=== PATIENT | female | born 1955 | race Caucasian/White ===

== ENCOUNTER 2018-06-24 13:40 | Emergency (ER) | payer BC ==
[2018-06-24] MEDS ORDERED: Diph,Pert(Acell),Tet Vac 0.5 ML SYR IM ONE (13:50)
[2018-06-24] MEDS ORDERED: LIDOCAINE (XYLOCAINE) 1% MPF 10MG/ML 5ML VIAL ONE ×2 (13:54→14:22)
--- NOTE | 2018-06-24 14:33 | Emergency Department Record ---
History of Present Illness - General Chief Complaint: Laceration(s) Stated Complaint: LT INDEX LAC Time Seen by Provider: 06/24/18 13:47 Source: Patient, RN notes reviewed Mode of Arrival: Ambulatory - History of Present Illness Initial Commments: crush injury to the left index finger and a laceration on the flexor side of the finger, neuro vasc intact and full rom. she dropped a box spring onto her finger Onset/Timin -: Minutes(s) Place: Outdoors Context: Accidental Associated Symptoms: None Treatments Prior to Arrival: Bandage - [place] Coma Scale Eye Response: (4) Open spontaneously Motor Response: (6) Obeys commands Verbal Response: (5) Oriented [place] Total: 15 - Related Data Hx Tetanus Toxoid Vaccination: Yes Year of Tetanus Vaccination: 2012 Patient Tetanus UTD (within 5 yrs): Yes Home Medications Medication Instructions Recorded Confirmed Last Taken Citalopram Hydrobromide 10 mg PO DAILY 06/24/18 06/24/18 Unknown [Citalopram HBr] Levothyroxine Sodium 137 mcg PO DAILY 06/24/18 06/24/18 Unknown Metoprolol Succinate 50 mg PO DAILY 06/24/18 06/24/18 Unknown Rosuvastatin Calcium [Crestor] 20 mg PO DAILY 06/24/18 06/24/18 Unknown Tiotropium [place] [Spiriva] 18 mcg IH DAILY 06/24/18 06/24/18 Unknown Previous Rx's Medication Instructions Recorded Hydrocodone/APAP 5/325Mg [[place] 1 each PO Q4H #10 tab 06/24/18 5Mg/325Mg] Allergies Allergy/AdvReac Type Severity Reaction Status Date / Time No Known Drug Allergies Allergy Verified 06/24/18 13:51 Travel Screening - Travel/Exposure Within Last 30 Days Have you traveled within the last 30 days?: No Review of Systems Reviewed: No additional complaints except as noted below Constitutional: Reports: As per HPI. Denies: Chills, Fever, Malaise, Night sweats, Weakness, Weight change Eyes: Reports: As per HPI. Denies: Eye discharge, Eye pain, Photophobia, Vision change ENT: Reports: As per HPI. Denies: Congestion, Dental pain, Ear pain, Epistaxis , Hearing loss, Throat pain Respiratory: Reports: As per HPI. Denies: Cough, Dyspnea, Hemoptysis, Stridor, Wheezes Cardiovascular: Reports: As per HPI. Denies: Arrhythmia, Chest pain, Dyspnea on exertion, Edema, Murmurs, Orthopnea, Palpitations, Paroxysmal nocturnal dyspnea, Rheumatic Fever, Syncope Endocrine: Reports: As per HPI. Denies: Fatigue, Heat or cold intolerance, Polydipsia, Polyuria Gastrointestinal: Reports: As per HPI. Denies: Abdominal pain, Constipation, Diarrhea, Hematemesis, Hematochezia, Melena, Nausea, Vomiting Genitourinary: Reports: As per HPI. Denies: Abnormal menses, Discharge, Dyspareunia, Dysuria, Frequency, Hematuria, Incontinence, Retention, Urgency Musculoskeletal: Reports: As per HPI. Denies: Arthralgia, Back pain, Gout, Joint swelling, Myalgia, Neck pain Skin: Reports: As per HPI. Denies: Bruising, Change in color, Change in hair/ nails, Lesions, Pruritus, Rash Neurological: Reports: As per HPI. Denies: Abnormal gait, Confusion, Headache, Numbness, Paresthesias, Seizure, Tingling, Tremors, Vertigo, Weakness Psychiatric: Reports: As per HPI. Denies: Anxiety, Auditory hallucinations, Depression, Homicidal thoughts, Suicidal thoughts, Visual hallucinations Hematological/Lymphatic: Reports: As per HPI. Denies: Anemia, Blood Clots, Easy bleeding, Easy bruising, Swollen glands Past Medical History - SOCIAL HISTORY Smoking Status: Never smoker Alcohol Use: None Drug Use: None - RESPIRATORY Hx Respiratory Disorders: Yes Hx COPD: Yes - CARDIOVASCULAR Hx Cardio Disorders: Yes Hx Hypertension: Yes Comment:: high cholesterol - NEURO Hx Neuro Disorders: No - GI Hx GI Disorders: No - Hx Genitourinary Disorders: No - ENDOCRINE Hx Endocrine Disorders: Yes Hx Thyroid Disease: Yes - MUSCULOSKELETAL Hx Musculoskeletal Disorders: No - PSYCH Hx Psych Problems: Yes Hx Anxiety: Yes Hx Depression: Yes - HEMATOLOGY/ONCOLOGY Hx Hematology/Oncology Disorders: No Family Medical History Any Significant Family History?: No Physical Exam - General General Appearance: Alert, Oriented x3, Cooperative, No acute distress - Head Head exam: Normal inspection - Eye Eye exam: Normal appearance, PERRL Pupils: Normal accommodation - ENT ENT exam: Normal exam, Mucous membranes moist, Normal external ear exam, Normal orophraynx, TM's normal bilaterally Ear exam: Normal external inspection. negative: External canal tenderness Nasal Exam: Normal inspection. negative: Discharge, Sinus tenderness Mouth exam: Normal external inspection, Tongue normal Teeth exam: Normal inspection. negative: Dental caries Throat exam: Normal inspection. negative: Tonsillar erythema, Tonsillar exudate - Neck Neck exam: Normal inspection, Full ROM. negative: Tenderness - Respiratory Respiratory exam: Normal lung sounds bilaterally. negative: Respiratory distress - Cardiovascular Cardiovascular Exam: Regular rate, Normal rhythm, Normal heart sounds - GI/Abdominal GI/Abdominal exam: Soft, Normal bowel sounds. negative: Tenderness - Rectal Rectal exam: Deferred - exam: Deferred - Extremities Extremities exam: Normal inspection, Full ROM, Normal capillary refill. negative: Tenderness - Back Back exam: Reports: Normal inspection, Full ROM. Denies: Muscle spasm, Rash noted, Tenderness - Neurological Neurological exam: Alert, Normal gait, Oriented X3, Reflexes normal - Psychiatric Psychiatric exam: Normal affect, Normal mood - Skin Skin exam: Dry, Intact, Normal color, Warm, Other (laceration 3 cm of index finger) Course Vital Signs 06/24/18 13:44 Pulse Rate 51 L Respiratory 20 Rate Blood Pressure 165/81 Pulse Ox 96 - Reevaluation(s) Reevaluation #1: laceration of the left finger index 3 cm cleaned with shurclens and digital block 5.0 ethilon times 2 sutures 06/24/18 14:31 06/24/18 14:32 Disposition Clinical Impression: Laceration, Finger fracture, left Disposition: Home, Self-Care Condition: (1) Good Instructions: Laceration (ED), Finger Fracture (ED) Additional Instructions: remove sutures in 8 days follow up with Dr Pineda in 8 days motrin of tylenol for pain norco for severe pain Prescriptions: Hydrocodone/APAP 5/325Mg [[place] 5Mg/325Mg] 1 each PO Q4H #10 tab Forms: Patient Portal Access Quality - Quality Measures Quality Measures: N/A - Blood Pressure Screening Does Patient Have Any of the Following: No Blood Pressure Classification: Pre-Hypertensive BP Reading Systolic Measurement: 165 Diastolic Measurement: 81 Screening for High Blood Pressure: < Pre-Hypertensive BP, F/U Documented > [ G8950] Pre-Hypertensive Follow-up Interventions: Referral to alternative/primary care provider.
--- NOTE | 2018-06-24 14:51 | Emergency Department Record ---
History of Present Illness - General Chief Complaint: Laceration(s) Stated Complaint: LT INDEX LAC Time Seen by Provider: 06/24/18 13:47 Source: Patient, RN notes reviewed Mode of Arrival: Ambulatory - History of Present Illness Onset/Timin -: Minutes(s) Place: Outdoors Context: Accidental Associated Symptoms: None Treatments Prior to Arrival: Bandage - [place] Coma Scale Eye Response: (4) Open spontaneously Motor Response: (6) Obeys commands Verbal Response: (5) Oriented [place] Total: 15 - Related Data Hx Tetanus Toxoid Vaccination: Yes Year of Tetanus Vaccination: 2012 Patient Tetanus UTD (within 5 yrs): Yes Home Medications Medication Instructions Recorded Confirmed Last Taken Citalopram Hydrobromide 10 mg PO DAILY 06/24/18 06/24/18 Unknown [Citalopram HBr] Levothyroxine Sodium 137 mcg PO DAILY 06/24/18 06/24/18 Unknown Metoprolol Succinate 50 mg PO DAILY 06/24/18 06/24/18 Unknown Rosuvastatin Calcium [Crestor] 20 mg PO DAILY 06/24/18 06/24/18 Unknown Tiotropium [place] [Spiriva] 18 mcg IH DAILY 06/24/18 06/24/18 Unknown Previous Rx's Medication Instructions Recorded Hydrocodone/APAP 5/325Mg [[place] 1 each PO Q4H #10 tab 06/24/18 5Mg/325Mg] Allergies Allergy/AdvReac Type Severity Reaction Status Date / Time No Known Drug Allergies Allergy Verified 06/24/18 13:51 Travel Screening - Travel/Exposure Within Last 30 Days Have you traveled within the last 30 days?: No Review of Systems Constitutional: Reports: As per HPI. Denies: Chills, Fever, Malaise, Night sweats, Weakness, Weight change Eyes: Reports: As per HPI. Denies: Eye discharge, Eye pain, Photophobia, Vision change ENT: Reports: As per HPI. Denies: Congestion, Dental pain, Ear pain, Epistaxis , Hearing loss, Throat pain Respiratory: Reports: As per HPI. Denies: Cough, Dyspnea, Hemoptysis, Stridor, Wheezes Cardiovascular: Reports: As per HPI. Denies: Arrhythmia, Chest pain, Dyspnea on exertion, Edema, Murmurs, Orthopnea, Palpitations, Paroxysmal nocturnal dyspnea, Rheumatic Fever, Syncope Endocrine: Reports: As per HPI. Denies: Fatigue, Heat or cold intolerance, Polydipsia, Polyuria Gastrointestinal: Reports: As per HPI. Denies: Abdominal pain, Constipation, Diarrhea, Hematemesis, Hematochezia, Melena, Nausea, Vomiting Genitourinary: Reports: As per HPI. Denies: Abnormal menses, Discharge, Dyspareunia, Dysuria, Frequency, Hematuria, Incontinence, Retention, Urgency Musculoskeletal: Reports: As per HPI. Denies: Arthralgia, Back pain, Gout, Joint swelling, Myalgia, Neck pain Skin: Reports: As per HPI. Denies: Bruising, Change in color, Change in hair/ nails, Lesions, Pruritus, Rash Neurological: Reports: As per HPI. Denies: Abnormal gait, Confusion, Headache, Numbness, Paresthesias, Seizure, Tingling, Tremors, Vertigo, Weakness Psychiatric: Reports: As per HPI. Denies: Anxiety, Auditory hallucinations, Depression, Homicidal thoughts, Suicidal thoughts, Visual hallucinations Hematological/Lymphatic: Reports: As per HPI. Denies: Anemia, Blood Clots, Easy bleeding, Easy bruising, Swollen glands Past Medical History - SOCIAL HISTORY Smoking Status: Never smoker Alcohol Use: None Drug Use: None - RESPIRATORY Hx Respiratory Disorders: Yes Hx COPD: Yes - CARDIOVASCULAR Hx Cardio Disorders: Yes Hx Hypertension: Yes Comment:: high cholesterol - NEURO Hx Neuro Disorders: No - GI Hx GI Disorders: No - Hx Genitourinary Disorders: No - ENDOCRINE Hx Endocrine Disorders: Yes Hx Thyroid Disease: Yes - MUSCULOSKELETAL Hx Musculoskeletal Disorders: No - PSYCH Hx Psych Problems: Yes Hx Anxiety: Yes Hx Depression: Yes - HEMATOLOGY/ONCOLOGY Hx Hematology/Oncology Disorders: No Family Medical History Any Significant Family History?: No Course Vital Signs 06/24/18 13:44 Pulse Rate 51 L Respiratory 20 Rate Blood Pressure 165/81 Pulse Ox 96 Medical Decision Making - Data Complexity MDM Data: X-Ray Ordered and/or Reviewed (chip fractures of finger possibly degenerative joint disease) Disposition Clinical Impression: Laceration Finger fracture, left Qualifiers: Encounter type: initial encounter Finger: index finger Fracture type: closed Phalanx: distal Fracture alignment: nondisplaced Qualified Code(s): S62.661A - Nondisplaced fracture of distal phalanx of left index finger, initial encounter for closed fracture Disposition: Home, Self-Care Condition: (1) Good Instructions: Laceration (ED), Finger Fracture (ED) Additional Instructions: remove sutures in 8 days follow up with Dr Pineda in 8 days motrin of tylenol for pain norco for severe pain Prescriptions: Hydrocodone/APAP 5/325Mg [[place] 5Mg/325Mg] 1 each PO Q4H #10 tab Forms: Patient Portal Access Time of Disposition: 14:49 Quality - Quality Measures Quality Measures: N/A - Blood Pressure Screening Does Patient Have Any of the Following: No Blood Pressure Classification: Pre-Hypertensive BP Reading Systolic Measurement: 165 Diastolic Measurement: 81 Screening for High Blood Pressure: < Pre-Hypertensive BP, F/U Documented > [ G8950] Pre-Hypertensive Follow-up Interventions: Referral to alternative/primary care provider.
--- NOTE | 2018-06-24 15:16 | Emergency Department Record ---
History of Present Illness - General Chief Complaint: Laceration(s) Stated Complaint: LT INDEX LAC Time Seen by Provider: 06/24/18 13:47 Source: Patient, RN notes reviewed Mode of Arrival: Ambulatory - History of Present Illness Onset/Timin -: Minutes(s) Place: Outdoors Context: Accidental Associated Symptoms: None Treatments Prior to Arrival: Bandage - [place] Coma Scale Eye Response: (4) Open spontaneously Motor Response: (6) Obeys commands Verbal Response: (5) Oriented [place] Total: 15 - Related Data Hx Tetanus Toxoid Vaccination: Yes Year of Tetanus Vaccination: 2012 Patient Tetanus UTD (within 5 yrs): Yes Home Medications Medication Instructions Recorded Confirmed Last Taken Citalopram Hydrobromide 10 mg PO DAILY 06/24/18 06/24/18 Unknown [Citalopram HBr] Levothyroxine Sodium 137 mcg PO DAILY 06/24/18 06/24/18 Unknown Metoprolol Succinate 50 mg PO DAILY 06/24/18 06/24/18 Unknown Rosuvastatin Calcium [Crestor] 20 mg PO DAILY 06/24/18 06/24/18 Unknown Tiotropium [place] [Spiriva] 18 mcg IH DAILY 06/24/18 06/24/18 Unknown Previous Rx's Medication Instructions Recorded Hydrocodone/APAP 5/325Mg [[place] 1 each PO Q4H #10 tab 06/24/18 5Mg/325Mg] Tramadol HCl [Ultram] 50 mg PO Q8H #10 tab 06/24/18 Allergies Allergy/AdvReac Type Severity Reaction Status Date / Time No Known Drug Allergies Allergy Verified 06/24/18 13:51 Travel Screening - Travel/Exposure Within Last 30 Days Have you traveled within the last 30 days?: No Review of Systems Constitutional: Reports: As per HPI. Denies: Chills, Fever, Malaise, Night sweats, Weakness, Weight change Eyes: Reports: As per HPI. Denies: Eye discharge, Eye pain, Photophobia, Vision change ENT: Reports: As per HPI. Denies: Congestion, Dental pain, Ear pain, Epistaxis , Hearing loss, Throat pain Respiratory: Reports: As per HPI. Denies: Cough, Dyspnea, Hemoptysis, Stridor, Wheezes Cardiovascular: Reports: As per HPI. Denies: Arrhythmia, Chest pain, Dyspnea on exertion, Edema, Murmurs, Orthopnea, Palpitations, Paroxysmal nocturnal dyspnea, Rheumatic Fever, Syncope Endocrine: Reports: As per HPI. Denies: Fatigue, Heat or cold intolerance, Polydipsia, Polyuria Gastrointestinal: Reports: As per HPI. Denies: Abdominal pain, Constipation, Diarrhea, Hematemesis, Hematochezia, Melena, Nausea, Vomiting Genitourinary: Reports: As per HPI. Denies: Abnormal menses, Discharge, Dyspareunia, Dysuria, Frequency, Hematuria, Incontinence, Retention, Urgency Musculoskeletal: Reports: As per HPI. Denies: Arthralgia, Back pain, Gout, Joint swelling, Myalgia, Neck pain Skin: Reports: As per HPI. Denies: Bruising, Change in color, Change in hair/ nails, Lesions, Pruritus, Rash Neurological: Reports: As per HPI. Denies: Abnormal gait, Confusion, Headache, Numbness, Paresthesias, Seizure, Tingling, Tremors, Vertigo, Weakness Psychiatric: Reports: As per HPI. Denies: Anxiety, Auditory hallucinations, Depression, Homicidal thoughts, Suicidal thoughts, Visual hallucinations Hematological/Lymphatic: Reports: As per HPI. Denies: Anemia, Blood Clots, Easy bleeding, Easy bruising, Swollen glands Past Medical History - SOCIAL HISTORY Smoking Status: Never smoker Alcohol Use: None Drug Use: None - RESPIRATORY Hx Respiratory Disorders: Yes Hx COPD: Yes - CARDIOVASCULAR Hx Cardio Disorders: Yes Hx Hypertension: Yes Comment:: high cholesterol - NEURO Hx Neuro Disorders: No - GI Hx GI Disorders: No - Hx Genitourinary Disorders: No - ENDOCRINE Hx Endocrine Disorders: Yes Hx Thyroid Disease: Yes - MUSCULOSKELETAL Hx Musculoskeletal Disorders: No - PSYCH Hx Psych Problems: Yes Hx Anxiety: Yes Hx Depression: Yes - HEMATOLOGY/ONCOLOGY Hx Hematology/Oncology Disorders: No Family Medical History Any Significant Family History?: No Course Vital Signs 06/24/18 13:44 Pulse Rate 51 L Respiratory 20 Rate Blood Pressure 165/81 Pulse Ox 96 - Reevaluation(s) Reevaluation #1: patient states can not take norco so will give ultram script 06/24/18 15:12 Disposition Clinical Impression: Laceration Finger fracture, left Qualifiers: Encounter type: initial encounter Finger: index finger Fracture type: closed Phalanx: distal Fracture alignment: nondisplaced Qualified Code(s): S62.661A - Nondisplaced fracture of distal phalanx of left index finger, initial encounter for closed fracture Disposition: Home, Self-Care Condition: (1) Good Instructions: Laceration (ED), Finger Fracture (ED) Additional Instructions: remove sutures in 8 days follow up with Dr Pineda in 8 days motrin of tylenol for pain norco for severe pain Prescriptions: Hydrocodone/APAP 5/325Mg [[place] 5Mg/325Mg] 1 each PO Q4H #10 tab Tramadol HCl [Ultram] 50 mg PO Q8H #10 tab Forms: Patient Portal Access Time of Disposition: 15:15 Quality - Quality Measures Quality Measures: N/A - Blood Pressure Screening Does Patient Have Any of the Following: No Blood Pressure Classification: Pre-Hypertensive BP Reading Systolic Measurement: 165 Diastolic Measurement: 81 Screening for High Blood Pressure: < Pre-Hypertensive BP, F/U Documented > [ G8950] Pre-Hypertensive Follow-up Interventions: Referral to alternative/primary care provider.
--- NOTE | 2018-06-25 10:07 | RADIOLOGY REPORT ---
EXAM: LEFT SECOND FINGER HISTORY: CRUSH INJURY. TECHNIQUE: Multiple views of the left second finger were obtained. Comparison: None. FINDINGS: Moderate degenerative changes are present in the distal interphalangeal joint of the left index finger, the area pointed by the arrow. Osteophytes are noted. A few tiny fragments are present at the joint space, not likely to be acute. There is moderate soft tissue swelling of the distal interphalangeal joint. There is normal alignment of the finger. IMPRESSION: THERE ARE MODERATE DEGENERATIVE CHANGES OF THE DISTAL INTERPHALANGEAL JOINT OF THE LEFT INDEX FINGER. NO DEFINITE ACUTE FRACTURE, ALTHOUGH IT WOULD BE DIFFICULT TO EXCLUDE SOME TINY FRACTURE FRAGMENTS. NORMAL ALIGNMENT OF THE FINGER. JOB NUMBER: [id number] [facility]
== END 2018-06-24 15:20 | disposition home or self-care (01) ==
LOC: ER 13:40
DX: S61.211A Laceration without foreign body of left index finger without damage to nail, initial encounter (principal); J44.9 Chronic obstructive pulmonary disease, unspecified; E78.00 Pure hypercholesterolemia, unspecified; E03.9 Hypothyroidism, unspecified; S62.661A Nondisplaced fracture of distal phalanx of left index finger, initial encounter for closed fracture
CPT/HCPCS: 12002; 73140; 90715; 96372; 99283; J3490

== ENCOUNTER 2018-07-04 14:32 | Emergency (ER) | payer BC ==
--- NOTE | 2018-07-04 15:23 | Emergency Department Record ---
History of Present Illness - General Chief Complaint: Suture removal Stated Complaint: STITCHES REMOVED Time Seen by Provider: 07/04/18 15:21 - History of Present Illness Initial Comments: suture removal MD Complaint: Suture/staple removal Onset/Timin -: Days(s) Initial Visit For: Laceration Returns Today for: Staple/stitch removal Symptoms Since Prior Visit: No new symptoms, Improved Associated Symptoms: None - Related Data Previous Rx's Medication Instructions Recorded Hydrocodone/APAP 5/325Mg [[place] 1 each PO Q4H #10 tab 06/24/18 5Mg/325Mg] Tramadol HCl [Ultram] 50 mg PO Q8H #10 tab 06/24/18 Allergies Allergy/AdvReac Type Severity Reaction Status Date / Time No Known Drug Allergies Allergy Verified 07/04/18 15:07 Travel Screening - Travel/Exposure Within Last 30 Days Have you traveled within the last 30 days?: No - Travel/Exposure Within Last Year Have you traveled outside the [place] in the last year?: No - Additonal Travel Details Have you been exposed to anyone with a communicable illness?: No - Travel Symptoms Symptom Screening: None Review of Systems Reviewed: No additional complaints except as noted below Constitutional: Reports: As per HPI. Denies: Chills, Fever, Malaise, Night sweats, Weakness, Weight change Eyes: Reports: As per HPI. Denies: Eye discharge, Eye pain, Photophobia, Vision change ENT: Reports: As per HPI. Denies: Congestion, Dental pain, Ear pain, Epistaxis , Hearing loss, Throat pain Respiratory: Reports: As per HPI. Denies: Cough, Dyspnea, Hemoptysis, Stridor, Wheezes Cardiovascular: Reports: As per HPI. Denies: Arrhythmia, Chest pain, Dyspnea on exertion, Edema, Murmurs, Orthopnea, Palpitations, Paroxysmal nocturnal dyspnea, Rheumatic Fever, Syncope Endocrine: Reports: As per HPI. Denies: Fatigue, Heat or cold intolerance, Polydipsia, Polyuria Gastrointestinal: Reports: As per HPI. Denies: Abdominal pain, Constipation, Diarrhea, Hematemesis, Hematochezia, Melena, Nausea, Vomiting Genitourinary: Reports: As per HPI. Denies: Abnormal menses, Discharge, Dyspareunia, Dysuria, Frequency, Hematuria, Incontinence, Retention, Urgency Musculoskeletal: Reports: As per HPI. Denies: Arthralgia, Back pain, Gout, Joint swelling, Myalgia, Neck pain Skin: Reports: As per HPI. Denies: Bruising, Change in color, Change in hair/ nails, Lesions, Pruritus, Rash Neurological: Reports: As per HPI. Denies: Abnormal gait, Confusion, Headache, Numbness, Paresthesias, Seizure, Tingling, Tremors, Vertigo, Weakness Psychiatric: Reports: As per HPI. Denies: Anxiety, Auditory hallucinations, Depression, Homicidal thoughts, Suicidal thoughts, Visual hallucinations Hematological/Lymphatic: Reports: As per HPI. Denies: Anemia, Blood Clots, Easy bleeding, Easy bruising, Swollen glands Past Medical History - SOCIAL HISTORY Smoking Status: Never smoker Alcohol Use: None Drug Use: None - RESPIRATORY Hx Respiratory Disorders: Yes Hx COPD: Yes - CARDIOVASCULAR Hx Cardio Disorders: Yes Hx Hypertension: Yes Comment:: high cholesterol - NEURO Hx Neuro Disorders: No - GI Hx GI Disorders: No - Hx Genitourinary Disorders: No - ENDOCRINE Hx Endocrine Disorders: Yes Hx Thyroid Disease: Yes - MUSCULOSKELETAL Hx Musculoskeletal Disorders: No - PSYCH Hx Psych Problems: Yes Hx Anxiety: Yes Hx Depression: Yes - HEMATOLOGY/ONCOLOGY Hx Hematology/Oncology Disorders: No Family Medical History Any Significant Family History?: No Physical Exam - General General Appearance: Alert, Oriented x3, Cooperative, No acute distress - Head Head exam: Normal inspection - Eye Eye exam: Normal appearance, PERRL Pupils: Normal accommodation - ENT ENT exam: Normal exam, Mucous membranes moist, Normal external ear exam, Normal orophraynx, TM's normal bilaterally Ear exam: Normal external inspection. negative: External canal tenderness Nasal Exam: Normal inspection. negative: Discharge, Sinus tenderness Mouth exam: Normal external inspection, Tongue normal Teeth exam: Normal inspection. negative: Dental caries Throat exam: Normal inspection. negative: Tonsillar erythema, Tonsillar exudate - Neck Neck exam: Normal inspection, Full ROM. negative: Tenderness - Respiratory Respiratory exam: Normal lung sounds bilaterally. negative: Respiratory distress - Cardiovascular Cardiovascular Exam: Regular rate, Normal rhythm, Normal heart sounds - GI/Abdominal GI/Abdominal exam: Soft, Normal bowel sounds. negative: Tenderness - Rectal Rectal exam: Deferred - exam: Deferred - Extremities Extremities exam: Normal inspection, Full ROM, Normal capillary refill. negative: Tenderness - Back Back exam: Reports: Normal inspection, Full ROM. Denies: Muscle spasm, Rash noted, Tenderness - Neurological Neurological exam: Alert, Normal gait, Oriented X3, Reflexes normal - Psychiatric Psychiatric exam: Normal affect, Normal mood - Skin Skin exam: Dry, Intact, Normal color, Warm Course Vital Signs 07/04/18 15:08 Temperature 98 F Pulse Rate 55 L Respiratory 18 Rate Blood Pressure 144/71 Pulse Ox 98 Disposition Clinical Impression: Visit for suture removal Disposition: Home, Self-Care Condition: (1) Good Instructions: Stitches Removal (ED) Time of Disposition: 15:23 Quality - Quality Measures Quality Measures: N/A - Blood Pressure Screening Does Patient Have Any of the Following: No Blood Pressure Classification: Hypertensive Reading Systolic Measurement: 144 Diastolic Measurement: 71 Screening for High Blood Pressure: < Pre-Hypertensive BP, F/U Documented > [ G8950] Pre-Hypertensive Follow-up Interventions: Referral to alternative/primary care provider.
== END 2018-07-04 15:27 | disposition home or self-care (01) ==
LOC: ER 14:32
DX: Z48.02 Encounter for removal of sutures (principal)